=== PATIENT | female | born 1980 | race Two or more races ===

== ENCOUNTER 2021-12-07 14:06 | Outpatient (RCR) | payer OTHER, SELFPAY | END 2021-12-24 14:22 | disposition home or self-care (01) | LOC: HO.WCC 14:06 | PROVIDERS: Referring Provider Nurse Practitioner Primary Care; Visit Provider Physician Assistant | DX: T21.21XD Burn of second degree of chest wall, subsequent encounter (principal); T31.0 Burns involving less than 10% of body surface | CPT/HCPCS: 99212; 99213 ==